=== PATIENT | male | born 1975 | race Caucasian/White ===

== ENCOUNTER 2017-05-01 23:11 | Emergency (ER) | payer MEDICAID ==
--- NOTE | 2017-05-01 23:40 | Emergency Department Record ---
History of Present Illness - General Chief complaint: Pain Stated complaint: SWOLLEN LYMPH NODES IN GROIN Time Seen by Provider: 05/01/17 23:35 Source: Patient Mode of Arrival: Ambulatory Limitations: No limitations - History of Present Illness Initial comments: 42 yo male presents to ED with a CC of "swollen lymph nodes in my right inguinal region". Patient denies redness or rashes to the lower extremities, however patient does reports recent fever/chills approximately 2 weeks ago, symptoms resolved after about 2-3 days of nonspecific illness. Patient denies weight loss or change in appetite, and the patient denies health problems at his baseline. MD Complaint: Other Onset/Timin -: Hour(s) Location: Right, Other Severity scale (1-10): 4 Quality: Aching Consistency: Constant, Getting worse Improves with: Nothing Worsens with: Palpation - Related Data Allergies Allergy/AdvReac Type Severity Reaction Status Date / Time Penicillins Allergy HIVES Verified 08/19/16 12:10 Travel Screening - Travel/Exposure Within Last 30 Days Have you traveled within the last 30 days?: No Review of Systems Constitutional: Reports: Chills, Fever. Denies: Malaise, Night sweats Eyes: Denies: Eye discharge, Eye pain ENT: Denies: Congestion, Ear pain, Epistaxis Respiratory: Denies: Cough, Dyspnea Cardiovascular: Denies: Chest pain, Dyspnea on exertion Endocrine: Denies: Fatigue, Heat or cold intolerance Gastrointestinal: Denies: Nausea, Vomiting Genitourinary: Denies: Incontinence, Retention, Testicular pain, Testicular mass Musculoskeletal: Denies: Arthralgia, Back pain, Gout, Joint swelling Skin: Denies: Bruising, Change in color, Change in hair/nails Neurological: Denies: Abnormal gait, Confusion, Headache, Seizure Psychiatric: Denies: Anxiety Hematological/Lymphatic: Denies: Anemia, Blood Clots Past Medical History - SOCIAL HISTORY Smoking Status: Current every day smoker Alcohol Use: None Drug Use: None - RESPIRATORY Hx Respiratory Disorders: No - CARDIOVASCULAR Hx Cardio Disorders: No - NEURO Hx Neuro Disorders: No - GI Hx GI Disorders: No - Hx Genitourinary Disorders: Yes Hx Kidney Stones: Yes - ENDOCRINE Hx Endocrine Disorders: No - MUSCULOSKELETAL Hx Musculoskeletal Disorders: Yes Hx Arthritis: Yes - PSYCH Hx Psych Problems: No - HEMATOLOGY/ONCOLOGY Hx Hematology/Oncology Disorders: No Family Medical History Any Significant Family History?: Yes Hx Cancer: Grandparents Physical Exam - General General Appearance: Alert, Oriented x3, Cooperative, No acute distress Limitations: No limitations - Head Head exam: Atraumatic, Normocephalic, Normal inspection Head exam detail: negative: Abrasion, Contusion, Toney's sign, General tenderness, Hematoma, Laceration - Eye Eye exam: Normal appearance. negative: Conjunctival injection, Periorbital swelling, Periorbital tenderness, Scleral icterus - ENT Ear exam: negative: Auricular hematoma, Auricular trauma Nasal Exam: negative: Active bleeding, Discharge, Dried blood, Foreign body Mouth exam: negative: Drooling, Laceration, Muffled voice, Tongue elevation - Neck Neck exam: Normal inspection. negative: Meningismus, Tenderness - Respiratory Respiratory exam: Normal lung sounds bilaterally. negative: Rales, Respiratory distress, Rhonchi, Stridor - Cardiovascular Cardiovascular Exam: Regular rate, Normal rhythm, Normal heart sounds - GI/Abdominal GI/Abdominal exam: Soft. negative: Rebound, Rigid, Tenderness - Rectal Rectal exam: Deferred - exam: Deferred, Other (several small (<0.5 cm in diameter) lymph nodes to the right inguinal region) - Extremities Extremities exam: Normal inspection. negative: Pedal edema, Tenderness - Back Back exam: Reports: Normal inspection. Denies: CVA tenderness (R), CVA tenderness (L) - Neurological Neurological exam: Alert, Normal gait, Oriented X3 - Psychiatric Psychiatric exam: Normal affect, Normal mood - Skin Skin exam: Normal color. negative: Abrasion Type of lesion: negative: abrasion Course Vital Signs 05/01/17 23:14 Temperature 98.8 F Pulse Rate 97 H Respiratory 18 Rate Blood Pressure 122/88 Pulse Ox 99 - Reevaluation(s) Reevaluation #1: 05/01/17 23:40 Patient seen and examined, will obtain CBC to exclude the possibility of lymphoma and reassess. Patient agrees with the plan as discussed. Reevaluation #2: 05/02/17 00:06 Labs reviewed and are grossly unremarkable for an acute process. Patient was updated on all results, counseled to follow-up with his PCP in 1- 2 weeks for reassessment of his lymphadenopathy. Patient appears stable for discharge at this time. Medical Decision Making - Lab Data Result diagrams: 05/01/17 23:40 05/01/17 23:40 Disposition Disposition: Discharge Clinical Impression: Lymphadenopathy Disposition: Home, Self-Care Condition: (2) Stable Instructions: Lymphadenopathy (ED) Additional Instructions: Return to ED if your symptoms worsen or if you have any concerns. Follow-up with Dr. Valdes in 1-2 weeks as directed. Forms: Patient Portal Access Time of Disposition: 00:08 Quality - Quality Measures Quality Measures: N/A - Blood Pressure Screening Does Patient Have Any of the Following: No Blood Pressure Classification: Pre-Hypertensive BP Reading Systolic Measurement: 122 Diastolic Measurement: 88 Screening for High Blood Pressure: < Pre-Hypertensive BP, F/U Documented > [ G8950] Pre-Hypertensive Follow-up Interventions: Referral to alternative/primary care provider.
[2017-05-01 23:48] LABS: HEMATOCRIT 41.7 % (42.0-52.0); HEMOGLOBIN 14.6 gm/dl (14.0-18.0); MEAN CELL VOLUME 85.5 fl (81-97); MEAN CORPUSCULAR HEMOGLOBIN 29.9 pg (27-33); MEAN PLATELET VOLUME 9.5 fl (7.4-10.4); PLATELET COUNT 324 K/uL (130-400); RED BLOOD COUNT 4.88 M/uL (4.40-5.70); WHITE BLOOD COUNT W/O DIFF 11.3 K/uL (4.2-12.2)
[2017-05-02 00:01] LABS: ALB/GLOB RATIO 1.3 (1.1-1.8); ALBUMIN 3.9 gm/dL (3.5-5.0); ALKALINE PHOSPHATASE 76 U/L (38-126); ALT/SGPT 40 U/L (21-72); ANION GAP 7.7 (7-16); AST/SGOT 19 U/L (17-59); BILIRUBIN,TOTAL 0.81 mg/dL (0.2-1.3); BLOOD UREA NITROGEN 15 mg/dL (9-20); CARBON DIOXIDE 24.3 mmol/L (22-30); CREATININE 0.9 mg/dL (0.66-1.25); EST GLOMERULAR FILTRATION RATE > 60 ml/min; GLUCOSE,RANDOM 108 mg/dL (70-110)
== END 2017-05-02 00:18 | disposition home or self-care (01) ==
LOC: ER 23:11
DX: R59.0 Localized enlarged lymph nodes (principal)
CPT/HCPCS: 80053; 85027; 99283

== ENCOUNTER 2018-01-24 10:46 | Emergency (ER) | payer MEDICAID ==
--- NOTE | 2018-01-24 11:03 | Emergency Department Record ---
History of Present Illness - General Chief Complaint: Laceration(s) Stated Complaint: LACERATION Time Seen by Provider: 01/24/18 10:57 Source: Patient Mode of Arrival: Ambulatory Limitations: No limitations - History of Present Illness Initial Commments: The patient injured his R 3rd finger about 30 minutes prior to presenting to the ER. He had the finger crushed in a saw and it tore the skin of the finger pad. The patient is having some pain but states he is able to move his finger normally. His Td is UTD. Onset/Timin -: Minutes(s) Place: Home Context: Power tool use Associated Symptoms: None Treatments Prior to Arrival: Bandage - Related Data Hx Tetanus Toxoid Vaccination: Yes Year of Tetanus Vaccination: 2016 Patient Tetanus UTD (within 5 yrs): Yes Previous Rx's Medication Instructions Recorded Cephalexin [Keflex] 500 mg PO QID #20 cap 01/24/18 Allergies Allergy/AdvReac Type Severity Reaction Status Date / Time Penicillins Allergy HIVES Verified 08/19/16 12:10 Travel Screening - Travel/Exposure Within Last 30 Days Have you traveled within the last 30 days?: No Review of Systems Constitutional: Denies: Chills, Fever Past Medical History - SOCIAL HISTORY Smoking Status: Current every day smoker Alcohol Use: None Drug Use Detail:: Marijuana - RESPIRATORY Hx Respiratory Disorders: No - CARDIOVASCULAR Hx Cardio Disorders: No - NEURO Hx Neuro Disorders: No - GI Hx GI Disorders: No - Hx Genitourinary Disorders: Yes Hx Kidney Stones: Yes - ENDOCRINE Hx Endocrine Disorders: No - MUSCULOSKELETAL Hx Musculoskeletal Disorders: Yes Hx Arthritis: Yes - PSYCH Hx Psych Problems: No - HEMATOLOGY/ONCOLOGY Hx Hematology/Oncology Disorders: No Family Medical History Any Significant Family History?: Yes Hx Cancer: Grandparents Physical Exam - General General Appearance: Alert, Cooperative - Head Head exam: Normal inspection - Eye Eye exam: Normal appearance, PERRL - Extremities Extremities exam: Full ROM (The patient has normal flexion and estension of the R 3rd finger DIP joint.), Normal capillary refill, Tenderness (There is tenderness to the R 3rd finger pad with slight edema.). negative: Normal inspection (There is swelling to the R 3rd finger pad and the skin on the pad has basically been degloved. There is a 1.5 cm laceration where the degloving starts.), Joint swelling Course Vital Signs 01/24/18 10:49 Temperature 98.0 F Pulse Rate 66 Respiratory 18 Rate Blood Pressure 102/59 Pulse Ox 99 - Reevaluation(s) Reevaluation #1: Procedure note: The R 3rd finger was anesth. with 3 cc's Lido 1% and Sensoricaine in a 50:50 mixture. The lac was cleansed with betadine and scrubbed with sterile saline. The skin over the finger pad was degloved and then tacked down with 4 4.0 nylon sutures. There were no complications. 01/24/18 12:10 Medical Decision Making - Data Complexity MDM Data: X-Ray Ordered and/or Reviewed - Radiology Data Radiology results: Report reviewed (R 3rd finger: Neg for any acute changes.) Disposition Disposition: Discharge Clinical Impression: Laceration of finger Qualifiers: Encounter type: initial encounter Finger: middle finger Damage to nail status: without damage Foreign body presence: without foreign body Laterality: right Qualified Code(s): S61.212A - Laceration without foreign body of right middle finger without damage to nail, initial encounter Disposition: Home, Self-Care Condition: (2) Stable Instructions: Laceration (ED) Additional Instructions: Keep dry for 2 days then no soaking or swimming. Take Tylenol or Motrin for pain. Take the Keflex as directed. Please have the sutures removed in 10 days and return to the ER for any problems. Prescriptions: Cephalexin [Keflex] 500 mg PO QID #20 cap Forms: Patient Portal Access Time of Disposition: 12:12 Quality - Quality Measures Quality Measures: N/A - Blood Pressure Screening View Details: Yes Does Patient Have Any of the Following: No Blood Pressure Classification: Normal BP Reading Systolic Measurement: 102 Diastolic Measurement: 59 Screening for High Blood Pressure: < Normal BP, F/U Not Required > [G8783]
[2018-01-24] MEDS ORDERED: Diph,Pert(Acell),Tet Vac 0.5 ML SYR IM ONE (12:07)
== END 2018-01-24 12:26 | disposition home or self-care (01) ==
LOC: ER 10:46
DX: S61.212A Laceration without foreign body of right middle finger without damage to nail, initial encounter (principal); W29.3XXA Contact with powered garden and outdoor hand tools and machinery, initial encounter; F17.210 Nicotine dependence, cigarettes, uncomplicated; Y92.009 Unspecified place in unspecified non-institutional (private) residence as the place of occurrence of the external cause
CPT/HCPCS: 12041; 73140; 90715; 96372; 99283; 99284

== ENCOUNTER 2019-01-30 19:59 | Emergency (ER) | payer MEDICAID ==
--- NOTE | 2019-01-30 20:09 | Emergency Department Record ---
History of Present Illness - General Chief complaint: Extremity Problem Stated complaint: INJURY TO RT ARM Time Seen by Provider: 01/30/19 20:07 Source: Patient Mode of Arrival: Ambulatory Limitations: No limitations - History of Present Illness Initial comments: 44 yo male presents to ED for evaluation of right elbow pain with extension of the right wrist. 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 Patient denies direct trauma, denies distal weakness symptoms. Patient has not taken anything for his pain prior to arrival, denies health problems at his baseline. MD Complaint: Joint pain Onset/Timin -: Week(s) Location: Right, Elbow History of Same: No -: Yes Myalgia Radiation: Proximal Quality: Aching Consistency: Intermittent Improves with: Rest Worsens with: Other (Wrist extension) Associated Symptoms: Denies other symptoms - Related Data Previous Rx's Medication Instructions Recorded Cephalexin [Keflex] 500 mg PO QID #20 cap 01/24/18 Ibuprofen [Motrin] 800 mg PO Q6H PRN #30 tab 01/30/19 Allergies Allergy/AdvReac Type Severity Reaction Status Date / Time Penicillins Allergy HIVES Verified 08/19/16 12:10 Review of Systems Constitutional: Denies: Chills, Fever, Malaise, Night sweats Eyes: Denies: Eye discharge, Eye pain ENT: Denies: Congestion, Ear pain, Epistaxis Respiratory: Denies: Cough, Dyspnea Cardiovascular: Denies: Chest pain, Dyspnea on exertion Endocrine: Denies: Fatigue, Heat or cold intolerance Gastrointestinal: Denies: Abdominal pain, Nausea, Vomiting Genitourinary: Denies: Incontinence, Retention Musculoskeletal: Reports: Arthralgia, Myalgia. Denies: Back pain Skin: Denies: Bruising, Change in color Neurological: Denies: Abnormal gait, Confusion, Headache, Seizure Psychiatric: Denies: Anxiety Hematological/Lymphatic: Denies: Anemia, Blood Clots Past Medical History - SOCIAL HISTORY Smoking Status: Current every day smoker Drug Use Detail:: Marijuana - RESPIRATORY Hx Respiratory Disorders: No - CARDIOVASCULAR Hx Cardio Disorders: No - NEURO Hx Neuro Disorders: No - GI Hx GI Disorders: No - Hx Genitourinary Disorders: Yes Hx Kidney Stones: Yes - ENDOCRINE Hx Endocrine Disorders: No - MUSCULOSKELETAL Hx Musculoskeletal Disorders: Yes Hx Arthritis: Yes - PSYCH Hx Psych Problems: No - HEMATOLOGY/ONCOLOGY Hx Hematology/Oncology Disorders: No Family Medical History Hx Cancer: Grandparents Physical Exam - General General Appearance: Alert, Oriented x3, Cooperative, No acute distress Limitations: No limitations - Head Head exam: Atraumatic, Normocephalic, Normal inspection Head exam detail: negative: Abrasion, Contusion, Toney's sign, General tenderness, Hematoma, Laceration - Eye Eye exam: Normal appearance. negative: Conjunctival injection, Periorbital swelling, Periorbital tenderness, Scleral icterus - ENT Ear exam: negative: Auricular hematoma, Auricular trauma Nasal Exam: negative: Active bleeding, Discharge, Dried blood, Foreign body Mouth exam: negative: Drooling, Laceration, Muffled voice, Tongue elevation - Neck Neck exam: Normal inspection. negative: Meningismus, Tenderness - Respiratory Respiratory exam: Normal lung sounds bilaterally. negative: Rales, Respiratory distress, Rhonchi, Stridor - Cardiovascular Cardiovascular Exam: Regular rate, Normal rhythm, Normal heart sounds Peripheral Pulses: 3+: Radial (R) - GI/Abdominal GI/Abdominal exam: Soft. negative: Rebound, Rigid, Tenderness - Rectal Rectal exam: Deferred - exam: Deferred - Extremities Extremities exam: Full ROM, Tenderness, Other (TTP over the proximal/dorsal aspect of the right elbow, reproducible with extension of the right wrist. Compartments of the forearm are soft on examination, FROM intact. ). negative: Calf tenderness, Pedal edema - Back Back exam: Denies: CVA tenderness (R), CVA tenderness (L) - Neurological Neurological exam: Alert, Normal gait, Oriented X3 - Psychiatric Psychiatric exam: Normal affect, Normal mood - Skin Skin exam: Normal color. negative: Abrasion Type of lesion: negative: abrasion Course Vital Signs 01/30/19 20:04 Temperature 97.9 F Pulse Rate [ 68 Pulse Ox Probe] Respiratory 20 Rate Blood Pressure 124/98 [Left Arm] Pulse Ox 96 - Reevaluation(s) Reevaluation #1: 01/30/19 20:13 History and examination appear c/w lateral epicondylitis (tennis elbow). Will treat with restriction of repetitive movements of the upper extremity, OTC elbow brace, and Motrin 800 mg. Patient appears stable for discharge with symptomatic treatment as described. No clinical evidence for fracture, radiographs are not felt to be of benefit. Disposition Disposition: Discharge Clinical Impression: Tennis elbow Qualifiers: Laterality: right Qualified Code(s): M77.11 - Lateral epicondylitis, right elbow Disposition: Home, Self-Care Condition: (2) Stable Instructions: Tennis Elbow (ED) Additional Instructions: Return to ED if your symptoms worsen or if you have any concerns. Motrin 800 mg as directed. Elbow brace as needed. Follow-up with your family doctor in 3-5 days as directed. Prescriptions: Ibuprofen [Motrin] 800 mg PO Q6H PRN #30 tab PRN Reason: Pain - Mod To Severe (5-10) Forms: Patient Portal Access Time of Disposition: 20:08 Quality - Quality Measures Quality Measures: N/A - Blood Pressure Screening Does Patient Have Any of the Following: No Blood Pressure Classification: Hypertensive Reading Systolic Measurement: 124 Diastolic Measurement: 98 Screening for High Blood Pressure: < First Hypertensive BP, F/U Documented > [G8950] First Hypertensive Follow-up Interventions: Referral to alternative/primary care provider.
[2019-01-30] MEDS ORDERED: IBUPROFEN 400 MG TABLET PO ONE (20:12)
== END 2019-01-30 20:26 | disposition home or self-care (01) ==
LOC: ER 19:59
DX: M77.11 Lateral epicondylitis, right elbow (principal); F17.210 Nicotine dependence, cigarettes, uncomplicated
CPT/HCPCS: 99282